=== PATIENT | male | born 1975 | race Caucasian/White ===

== ENCOUNTER 2021-04-09 13:59 | Outpatient (RCR) | payer OTHER, SELFPAY ==
--- NOTE | 2021-04-09 15:30 | PT.OIE ---
Current Diagnoses Benign paroxysmal vertigo, right ear (04/09/21) Headache, unspecified (04/09/21) Visit Care Team Role Provider Type Alea Bentley Family Provider Non-Staff Primary Care Provider Specialty: Family Practice Address: [address] [place] [address], [id number] Email: Venancio Velazquez MD Attending Provider Physician Referring Provider Specialty: Ear, Nose, Throat Address: [address] [place] [address], [id number] Email: [email or web address] Physical Therapy Initial Evaluation PT-OP-A Visit Information Start: 04/05/21 09:31 Freq: Status: Active Protocol: Document 04/09/21 14:31 MB (Rec: 04/09/21 14:56 MB [id number]) Out-Patient Physical Therapy Visit Information Visit Information Visit Type Initial Evaluation Visit Note Prime Visit Start Time 14:31 Visit Stop Time 15:05 Total Visit Minutes 36 Visit Number 1 Evaluation Information Evaluation Date 04/09/21 PT-OP-B Current Condition Start: 04/05/21 09:31 Freq: Status: Active Protocol: Document 04/09/21 14:31 MB (Rec: 04/09/21 14:56 MB [id number]) Current Condition History of Current Condition Onset Date A few months ago Current Complaints Dizziness bending over and rolling to the right History of Current Condition 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 A few months ago, he noticed spinning bending over and looking up. It lasts 5-10 seconds. It has gotten worse and occ is bad with rolling to the right. He has a history of allergies and started getting shots in October. PMH includes: left knee ACL repair, meniscus repair and patellar ligament repair Pt denies: numbness and tingling, vision changes, history of concussion and whiplash, performance of sit- ups, anemia and B12 deficiency , hearing changes, trouble swallowing, eye pressure changes, roaring/ringing in the ears Pt reports: ear pressure in left ear, occ overhead work, sinus/allergy issues, chiropractor treatment for LBP and occasionally for neck when needed when he has headaches, occ left TMJ clicking Treatment Goals Patient/Caregiver Goals To decrease vertigo PT-OP-C Subjective Start: 04/05/21 09:31 Freq: Status: Active Protocol: Document 04/09/21 14:31 MB (Rec: 04/09/21 15:09 MB [id number]) OP-PT Subjective Patient Comments Patient Comments See history of current condition Patient Reported Progress Worse PT-OP-H Neuro Start: 04/05/21 09:31 Freq: Status: Active Protocol: Document 04/09/21 14:31 MB (Rec: 04/09/21 15:11 MB [id number]) Sensation Evaluation Gross Sensation Gross Sensation WNL Coordination Evaluation Upper Extremity Tests Left Pronation/Supination Test Normal Performance Right Pronation/Supination Test Normal Performance PT-OP-J Posture/Palpation/Skin Start: 04/05/21 09:31 Freq: Status: Active Protocol: Document 04/09/21 14:31 MB (Rec: 04/09/21 15:12 MB [id number]) Posture Evaluation Comments Posture Comments Forward head, rounded shoulders PT-OP-K Range of Motion Start: 04/05/21 09:31 Freq: Status: Active Protocol: Document 04/09/21 14:31 MB (Rec: 04/09/21 15:13 MB [id number]) Cervical Spine Range of Motion Cervical Spine Active Testing Position Standing Comments All directions WNLs in forward head posture PT-OP-M Strength Start: 04/05/21 09:31 Freq: Status: Active Protocol: Document 04/09/21 14:31 MB (Rec: 04/09/21 15:30 MB [id number]) Shoulder Strength Shoulder Manual Muscle Testing Bilateral Flexion 5 Normal PT-OP-O Vestibular Start: 04/05/21 09:31 Freq: Status: Active Protocol: Document 04/09/21 14:31 MB (Rec: 04/09/21 15:30 MB [id number]) Vestibular Assessment Visual Testing Smooth Pursuits Horizontal Normal Smooth Pursuits Vertical Normal Gaze Evoked Nystagmus With Fixation Normal Convergence Test Normal Positional Testing [place]-Hallpike Positive Right,< 60 Seconds PT-OP-Q Treatments Start: 04/05/21 09:31 Freq: Status: Active Protocol: Document 04/09/21 14:31 MB (Rec: 04/09/21 15:30 MB [id number]) Self-Care/Home Management Treatment Education Other Education Provided handout and photo about BPPV, ed pt on increasing non-caffeinated fluid intake and decreasing caffeine and alcohol intake, keeping neck loose, avoiding prolonged neck postures of looking down and up, proper sleeping position Canalithic Repositioning BPPV Treatment Other Comments Modified Stevie for right posterior canalithiasis x2 with second treatment to assess clearance, which was clear PT-OP-T Assessment and Plan Start: 04/05/21 09:31 Freq: Status: Active Protocol: Document 04/09/21 14:31 MB (Rec: 04/09/21 15:30 MB [id number]) Physical Therapy Assessment Rehab Potential Rehabilitation Potential Excellent Evaluation Complexity Number of Personal Factors/Comorbidities 1-2 Number of Body Systems Impaired 1-2 Clinical Presentation at Evaluation Stable Impairments Impairments Balance,Pain,ROM,Vestibular Other Impairments Personal factors include tall height and 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 Body systems included are musculoskeletal and vestibular . His clinical presentation is stable. Other Concerns Fall Risk No Goals 2 Pillowcase Cutter Goal (LTG) Pt will perform progressive HEP with I including postural, flexibility, VOR and balance exercises to improve posture and VOR by 05/10/21. LTG Duration 4 weeks 1 Pillowcase Cutter Goal (LTG) Pt will deny dizziness with looking up and bending over by 05/10/21. 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 BPPV is cleared after repositioning maneuever today. Provided education to pt and recommend check back at least 1 more visit as needed. Physical Therapy Plan Frequency and Duration Frequency of Treatment 1-2 treatments Duration of Treatment 4 weeks Plan of Care Start Date 04/09/21 Plan of Care End Date 05/10/21 Therapeutic Interventions Therapeutic Interventions Balance Training,Canalithic Repositioning,Home Exercise Program,Manual Therapy, Neuromuscular Re-education, Patient/Caregiver Education, Self-Care/Home Management, Vestibular Rehabilitation Next Visit Focus/Plan Next Note Type Treatment Note Next Visit Plan Reassess for BPPV if needed, check VOR and balance if pt desires and provide exercises
--- NOTE | 2021-04-09 15:30 | PT.OPPOC ---
Physical, Occupational & Speech Therapy At [facility] Current Diagnoses Benign paroxysmal vertigo, right ear (04/09/21) Headache, unspecified (04/09/21) Visit Care Team Role Provider Type Alea Bentley Family Provider Non-Staff Primary Care Provider Specialty: Family Practice Address: [address] [place] [address], [address] Email: Venancio Velazquez MD Attending Provider Physician Referring Provider Specialty: Ear, Nose, Throat Address: [address] [place] [address], [id number] Email: [email or web address] Plan Of Care PT-OP-T Assessment and Plan Start: 04/05/21 09:31 Freq: Status: Active Protocol: Document 04/09/21 14:31 MB (Rec: 04/09/21 15:30 MB [id number]) Physical Therapy Assessment Rehab Potential Rehabilitation Potential Excellent Evaluation Complexity Number of Personal Factors/Comorbidities 1-2 Number of Body Systems Impaired 1-2 Clinical Presentation at Evaluation Stable Impairments Impairments Balance,Pain,ROM,Vestibular Other Impairments Personal factors include tall height and 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 Body systems included are musculoskeletal and vestibular . His clinical presentation is stable. Other Concerns Fall Risk No Goals 2 Snf Goal (LTG) Pt will perform progressive HEP with I including postural, flexibility, VOR and balance exercises to improve posture and VOR by 05/10/21. LTG Duration 4 weeks 1 Snf Goal (LTG) Pt will deny dizziness with looking up and bending over by 05/10/21. 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 BPPV is cleared after repositioning maneuever today. Provided education to pt and recommend check back at least 1 more visit as needed. Physical Therapy Plan Frequency and Duration Frequency of Treatment 1-2 treatments Duration of Treatment 4 weeks Plan of Care Start Date 04/09/21 Plan of Care End Date 05/10/21 Therapeutic Interventions Therapeutic Interventions Balance Training,Canalithic Repositioning,Home Exercise Program,Manual Therapy, Neuromuscular Re-education, Patient/Caregiver Education, Self-Care/Home Management, Vestibular Rehabilitation Next Visit Focus/Plan Next Note Type Treatment Note Next Visit Plan Reassess for BPPV if needed, check VOR and balance if pt desires and provide exercises Plan of Care Dates Plan of Care Start Date 04/09/21 Plan of Care End Date 05/10/21 Electronically Signed by: Jyoti Rueda PT 04/09/21 [id number] Please Sign and Return: I have reviewed this Plan of Care and certify that the skilled therapy services above are required to meet the patient?s needs. Physician Signature Date Printed Name and Credentials Clinical Instructor Signature Printed Name and Credentials
--- NOTE | 2021-04-21 10:22 | PT.OPDS ---
Current Diagnoses Benign paroxysmal vertigo, right ear (04/09/21) Headache, unspecified (04/09/21) Visit Care Team Role Provider Type Alea Bentley Family Provider Non-Staff Primary Care Provider Specialty: Family Practice Address: [address] [place] [address], [address] Email: Venancio Velazquez MD Attending Provider Physician Referring Provider Specialty: Ear, Nose, Throat Address: [address] [place] [address], [address] Email: [email or web address] Visit Number Visit Number 1 Discharge Summary PT-OP-B Current Condition Start: 04/05/21 09:31 Freq: Status: Active Protocol: Document 04/09/21 14:31 MB (Rec: 04/09/21 14:56 MB [id number]) Current Condition History of Current Condition Onset Date A few months ago Current Complaints Dizziness bending over and rolling to the right History of Current Condition 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 A few months ago, he noticed spinning bending over and looking up. It lasts 5-10 seconds. It has gotten worse and occ is bad with rolling to the right. He has a history of allergies and started getting shots in October. PMH includes: left knee ACL repair, meniscus repair and patellar ligament repair Pt denies: numbness and tingling, vision changes, history of concussion and whiplash, performance of sit- ups, anemia and B12 deficiency , hearing changes, trouble swallowing, eye pressure changes, roaring/ringing in the ears Pt reports: ear pressure in left ear, occ overhead work, sinus/allergy issues, chiropractor treatment for LBP and occasionally for neck when needed when he has headaches, occ left TMJ clicking Treatment Goals Patient/Caregiver Goals To decrease vertigo PT-OP-C Subjective Start: 04/05/21 09:31 Freq: Status: Active Protocol: Document 04/09/21 14:31 MB (Rec: 04/09/21 15:09 MB [id number]) OP-PT Subjective Patient Comments Patient Comments See history of current condition Patient Reported Progress Worse PT-OP-H Neuro Start: 04/05/21 09:31 Freq: Status: Active Protocol: Document 04/09/21 14:31 MB (Rec: 04/09/21 15:11 MB [id number]) Sensation Evaluation Gross Sensation Gross Sensation WNL Coordination Evaluation Upper Extremity Tests Left Pronation/Supination Test Normal Performance Right Pronation/Supination Test Normal Performance PT-OP-J Posture/Palpation/Skin Start: 04/05/21 09:31 Freq: Status: Active Protocol: Document 04/09/21 14:31 MB (Rec: 04/09/21 15:12 MB [id number]) Posture Evaluation Comments Posture Comments Forward head, rounded shoulders PT-OP-K Range of Motion Start: 04/05/21 09:31 Freq: Status: Active Protocol: Document 04/09/21 14:31 MB (Rec: 04/09/21 15:13 MB [id number]) Cervical Spine Range of Motion Cervical Spine Active Testing Position Standing Comments All directions WNLs in forward head posture PT-OP-M Strength Start: 04/05/21 09:31 Freq: Status: Active Protocol: Document 04/09/21 14:31 MB (Rec: 04/09/21 15:30 MB [id number]) Shoulder Strength Shoulder Manual Muscle Testing Bilateral Flexion 5 Normal PT-OP-O Vestibular Start: 04/05/21 09:31 Freq: Status: Active Protocol: Document 04/09/21 14:31 MB (Rec: 04/09/21 15:30 MB [id number]) Vestibular Assessment Visual Testing Smooth Pursuits Horizontal Normal Smooth Pursuits Vertical Normal Gaze Evoked Nystagmus With Fixation Normal Convergence Test Normal Positional Testing Maxie-Hallpike Positive Right,< 60 Seconds PT-OP-T Assessment and Plan Start: 04/05/21 09:31 Freq: Status: Active Protocol: Document 04/21/21 10:21 MB (Rec: 04/21/21 10:22 MB [id number]) Physical Therapy Plan Discharge Physical Therapy Discharge Reasons Patient Request Discharge Comments BPPV was cleared on initial evaluation and pt cancelled next scheduled appointment Will d/c PT.
== END 2021-04-21 10:33 | disposition home or self-care (01) ==
LOC: PHYS 13:59
PROVIDERS: Family Provider Family Medicine; PCP Family Medicine; Referring Provider Otolaryngology; Visit Provider Otolaryngology
DX: H81.11 Benign paroxysmal vertigo, right ear (principal); R51.9 Headache, unspecified
CPT/HCPCS: 95992; 97161

== ENCOUNTER → 2022-07-30 07:51 | Outpatient (CLI) | payer OTHER, SELFPAY ==
--- NOTE | 2022-07-30 07:54 | DI.MRI.S_ITS ---
PROCEDURE: MR HEAD/BRAIN WO CON INDICATIONS: Dizziness and giddiness TECHNIQUE: Noncontrast axial T1 spin echo, axial T2 fast spin echo, sagittal and axial FLAIR, coronal T2 fast spin echo, axial gradient echo, axial diffusion and ADC through the brain. COMPARISON: None. FINDINGS: Image quality: Excellent. CSF Spaces: Basal cisterns are patent. No extra-axial fluid collections. Ventricles are normal in size and shape. Brain: No intracranial masses or hemorrhage. Michele/white matter interface is normal. Brainstem appears normal. Diffusion-weighted images demonstrate no acute infarct. Normal intravascular flow voids are present. Nonspecific bilateral white matter hyperintensities which measure less than 5 mm become confluent around the atria Skull and face: Calvarium has normal marrow signal. Orbits appear normal. Sinuses: Sinuses and mastoids are clear. IMPRESSION: Nonspecific white matter multifocal hyperintensities probably reflects early microvascular chronic ischemic change. Less likely differential possibilities include migrainous vasculopathy, small vessel vasculitis, and sequelae from prior traumatic or inflammatory insults. Approved by: Usman Cano M.D. on 07/30/2022 at 8:02
== END ==
PROVIDERS: Family Provider Family Medicine; PCP Family Medicine; Referring Provider Family Medicine; Visit Provider Family Medicine
DX: R42 Dizziness and giddiness (principal); R06.09 Other forms of dyspnea; I10 Essential (primary) hypertension
CPT/HCPCS: 70551

== ENCOUNTER → 2024-03-22 09:27 | Outpatient (CLI) | payer OTHER, SELFPAY | LOC: RESP 09:28 | PROVIDERS: Family Provider Family Medicine; PCP Family Medicine; Referring Provider Chiropractor; Visit Provider Chiropractor | DX: R06.02 Shortness of breath (principal) | CPT/HCPCS: 94060 ==

== ENCOUNTER → 2024-08-12 14:47 | Outpatient (CLI) | payer OTHER, SELFPAY ==
--- NOTE | 2024-08-12 14:50 | DI.RAD.S_ITS ---
PROCEDURE: XR ANKLE LT 2V INDICATIONS: arthritis TECHNIQUE: 3 views of the ankle were acquired. COMPARISON: None. FINDINGS: Bones: There is an 8 mm ossification, distal to the lateral malleolus , which likely represents remote avulsion fracture. The may function as a loose body Tibiotalar and talocalcaneal joints: Normal in width and alignment without arthritic change. Soft tissues: No soft tissue swelling, calcification or mass. IMPRESSION: 8 mm ossification in the lateral ankle mortise region which may function as a loose body. Dictated by: Alberto Angeles M.D. on 08/13/2024 at 10:01 Approved by: Alberto Angeles M.D. on 08/13/2024 at 10:02
--- NOTE | 2024-08-12 14:50 | DI.RAD.S_ITS ---
PROCEDURE: XR ANKLE RT 2V INDICATIONS: arthritis TECHNIQUE: 3 views of the ankle were acquired. COMPARISON: [facility], [place], XR ANKLE LT 2V, 08/12/2024, 14:00. FINDINGS: Bones: There are no osseous abnormalities. Tibiotalar and talocalcaneal joints: Normal in width and alignment without arthritic change. Soft tissues: No soft tissue swelling, calcification or mass. IMPRESSION: Normal ankle Dictated by: Alberto Angeles M.D. on 08/13/2024 at 10:04 Approved by: Alberto Angeles M.D. on 08/13/2024 at 10:05
== END ==
LOC: RAD 14:48
PROVIDERS: Family Provider Family Medicine; Referring Provider Chiropractor; Visit Provider Chiropractor
DX: M13.80 Other specified arthritis, unspecified site (principal)
CPT/HCPCS: 73600